=== PATIENT | female | born 1970 | race Caucasian/White ===

== ENCOUNTER → 2018-05-21 | Outpatient (REF) | payer OTHER | LOC: M LAB REF 09:21 | DX: N39.0 Urinary tract infection, site not specified (principal) ==

== ENCOUNTER → 2019-03-27 | Day surgery (SDC) | payer OTHER ==
[~2019-03-27] VITALS: Ht 154.9 cm; Wt 70.7 kg
[~2019-03-27] MED LIST: DIOV80TA3 PO; MOTR200T44 PO; NS 1,000 ML IV ONE; OLME20TA2 PO; PERC5TAB12 PO; PROPOFOL 200 MG/20 ML VIAL As Ordered ONE
--- NOTE | 2019-03-27 08:10 | ROOR ---
Patient Name: Maria Esther Mock Procedure Date: 03/27/2019 7:30 AM Date of : 1970 Age: 48 Room: [facility] Gender: Female Note Status: Finalized Procedure: Total Colonoscopy to Cecum+ Hot Snare Polypectomy+Clips+Carbon Spot Marking Indications: Positive fecal immunochemical test Providers: Alonzo Kovacs MD Referring MD: Natacha TARIQ MD Requesting Provider: Medicines: Monitored Anesthesia Care Complications: No immediate complications. Procedure: Pre-Anesthesia Assessment: - The heart rate, respiratory rate, oxygen saturations, blood pressure, adequacy of pulmonary ventilation, and response to care were monitored throughout the procedure. The Colonoscope was introduced through the anus and advanced to the cecum, identified by appendiceal orifice and ileocecal valve. The colonoscopy was performed without difficulty. The patient tolerated the procedure well. The quality of the bowel preparation was excellent. Findings: The perianal and digital rectal examinations were normal. Non-bleeding internal hemorrhoids were found during retroflexion. The hemorrhoids were small and Grade I (internal hemorrhoids that do not prolapse). Multiple small and large-mouthed diverticula were found in the recto-sigmoid colon, sigmoid colon and descending colon. A large polyp was found at 40 cm proximal to the anus. The polyp was sessile. The polyp was removed with a hot snare. Resection and retrieval were complete. Area was successfully injected with Spot (carbon black) for tattooing. To prevent bleeding after the polypectomy, two hemostatic clips were successfully placed (MR conditional). There was no bleeding at the end of the procedure. A diminutive polyp was found in the splenic flexure. The polyp was sessile. The polyp was removed with a jumbo cold forceps. Resection and retrieval were complete. The exam was otherwise without abnormality on direct and retroflexion views. The terminal ileum appeared normal. Impression: - Non-bleeding internal hemorrhoids. - Diverticulosis in the recto-sigmoid colon, in the sigmoid colon and in the descending colon. - One large polyp at 40 cm proximal to the anus, removed with a hot snare. Resected and retrieved. Injected. Clips (MR conditional) were placed. - One diminutive polyp at the splenic flexure, removed with a jumbo cold forceps. Resected and retrieved. - The examination was otherwise normal on direct and retroflexion views. - The examined portion of the ileum was normal. - The exam was otherwise normal to the cecum. Recommendation: - Patient has a contact number available for emergencies. The signs and symptoms of potential delayed complications were discussed with the patient. Return to normal activities tomorrow. Written discharge instructions were provided to the patient. - High fiber diet. - Discharge patient to home. - Continue present medications. - Await pathology results. - Telephone GI clinic for pathology results in 1 week. - Repeat colonoscopy for surveillance based on pathology results. - Return to referring physician. - Check Portal Online for Path Results.([email or web address]) - The findings and recommendations were discussed with the patient's family. Alonzo Kovacs MD Alonzo Kovacs MD 03/27/2019 8:10:00 AM Electronically signed by Alonzo Kovacs MD Number of Addenda: 0 Note Initiated On: 03/27/2019 7:30 AM Estimated Blood Loss: Estimated blood loss: none.
[2019-03-27 08:25] VITALS: BP 105/69
== END | disposition home or self-care (01) ==
LOC: M OPP 08:10
PROVIDERS: ATTEND Internal Medicine Gastroenterology
DX: D12.6 Benign neoplasm of colon, unspecified (principal); K63.5 Polyp of colon; K64.0 First degree hemorrhoids; K57.30 Diverticulosis of large intestine without perforation or abscess without bleeding; R19.5 Other fecal abnormalities

== ENCOUNTER → 2021-06-23 | Outpatient (REF) | payer OTHER ==
[~2021-06-23] MED LIST changes: -NS 1,000 ML IV ONE; -PROPOFOL 200 MG/20 ML VIAL As Ordered ONE
[2021-06-25 16:08] LABS: ANTINUCLEAR ANTIBODIES DIRECT Negative (Negative); Lyme Disease IgG/IgM Antibodie <0.91 ISR (0.00-0.90); Lyme Disease IgM Ab Quantitati <0.80 index (0.00-0.79)
== END ==
LOC: M LAB REF 16:21
PROVIDERS: ATTEND Registered Nurse
DX: M13.0 Polyarthritis, unspecified (principal)

== ENCOUNTER → 2021-07-02 | Outpatient (CLI) | payer OTHER ==
--- NOTE | 2021-07-02 15:17 | REPMRS ---
Patient History The patient states she has not had a clinical breast exam in over a year. Family history of unknown cancer in maternal grandmother. Took hormonal contraceptives for 14 years. No breast complaints today Patient signed the MRS sheet 1st covid vaccine 01/26/21-right arm-Moderna 2nd covid vaccine 02/23/21-right arm Priors done @ [facility] PACS Patient Identification Verified Digital Woman Screen Mammo: July 02, 2021 - Exam #: [id number] Bilateral CC and MLO view(s) were taken. Technologist: Nica Morris, Technologist Prior study comparison: May 07, 2013, bilateral bilat screen digital mammo, performed at [facility] ([facility]). February 09, 2011, bilateral screening mammogram, performed at [facility] ([facility]). FINDINGS: There are scattered fibroglandular densities. Screening. Digital screening (2D) mammography was performed bilaterally in the CC and MLO projections. Additionally, breast tomosynthesis (3D mammography) was performed bilaterally in the CC and MLO projections. Todays exam was compared to the prior exam/exams. By history, the patient has no complaints of a palpable breast abnormality or other significant breast complaints. The breasts are unchanged in size and shape. There are no joanie-soft tissue densities or spiculated masses. There is no internal architectural distortion. There are no suspicious joanie-calcific clusters. Skin thickening or nipple retraction is not present. IMPRESSION: BI-RADS Category 2- Benign Findings. There is no evidence of malignant alteration of the breasts. Followup examination recommended in one year. The Volpara volumetric breast density category is B, there are scattered areas of fibroglandular densities. This mammogram was read with the assistance of [facility] [employer],an FDA approved computer aided detection system for mammography. The lifetime Tyrer-Cuzick score is 9.3 % Negative x-ray reports should not delay surgical consultation if a dominant or clinically suspicious mass is present. Not all breast cancers can be identified by mammography. Therefore, we recommend that you continue to perform regular breast self-examination and physical examination and then promptly contact your physician of any concerns or changes. Adenosis and dense breasts may obscure an underlying neoplasm. Assessment: BI-RADS/ACR category 2 mammogram. Benign Findings. Recommendation Routine screening mammogram of both breasts in 1 year. Electronically Signed By: Micah Bright DO 07/02/21 [id number]
== END ==
LOC: M WHC 14:22
PROVIDERS: ATTEND Internal Medicine
DX: Z12.31 Encounter for screening mammogram for malignant neoplasm of breast (principal); Z92.0 Personal history of contraception

== ENCOUNTER → 2021-08-16 | Outpatient (CLI) | payer OTHER ==
--- NOTE | 2021-08-16 12:15 | REP ---
INDICATION: PAIN COMPARISON: None. TECHNIQUE: AP, lateral, bilateral oblique, and coned-down views of the lumbar spine. FINDINGS: Alignment and lordosis maintained. Vertebral bodies are intact. No acute fracture/compression injury or subluxation. No obvious spondylolysis or spondylolisthesis. Mild/moderate multilevel degenerative changes include endplate sclerosis, minimal marginal spurring, and disc space narrowing. Findings most pronounced at L5-S1 and L2-3. IMPRESSION: Mild/moderate multilevel degenerative changes. <Electronically signed by Juan M Boyd > 08/16/21 [id number]
== END ==
LOC: M WUC 11:57
PROVIDERS: ATTEND Internal Medicine
DX: M79.606 Pain in leg, unspecified (principal)

== ENCOUNTER → 2022-07-10 | Outpatient (CLI) | payer OTHER | LOC: M LABSMTC 10:09 | PROVIDERS: ATTEND Anesthesiology | DX: Z01.818 Encounter for other preprocedural examination (principal); Z11.52 Encounter for screening for COVID-19 ==

== ENCOUNTER 2022-07-13 11:43 | Day surgery (SDC) | payer OTHER ==
[~2022-07-13] VITALS: Ht 154.9 cm; Wt 72.5 kg
[~2022-07-13 11:43] MED LIST changes: +NS 1,000 ML IV ONE
[2022-07-13] MEDS ORDERED: propofoL 200 MG/20 ML VIAL As Ordered ONE (12:53)
[2022-07-13] MEDS ORDERED: LIDOCAINE 2% 100MG/5ML SDV (FOR ANES.) As Ordered ONE (12:53)
[2022-07-13 14:30] VITALS: BP 129/86
== END 2022-07-13 14:45 | disposition home or self-care (01) ==
LOC: M OPP 11:43
PROVIDERS: ATTEND Internal Medicine Gastroenterology
DX: Z12.11 Encounter for screening for malignant neoplasm of colon (principal); Z86.010 Personal history of colon polyps; K57.30 Diverticulosis of large intestine without perforation or abscess without bleeding; K64.0 First degree hemorrhoids; I10 Essential (primary) hypertension; D64.9 Anemia, unspecified; Z79.1 Long term (current) use of non-steroidal anti-inflammatories (NSAID); Z79.899 Other long term (current) drug therapy; Z88.2 Allergy status to sulfonamides; Z88.8 Allergy status to other drugs, medicaments and biological substances; Z91.013 Allergy to seafood; Z91.018 Allergy to other foods; Z86.16 Personal history of COVID-19

== ENCOUNTER → 2022-08-02 | Outpatient (CLI) | payer OTHER ==
[~2022-08-02] MED LIST changes: -NS 1,000 ML IV ONE
== END ==
LOC: M WHC 13:53
PROVIDERS: ATTEND Internal Medicine
DX: Z12.31 Encounter for screening mammogram for malignant neoplasm of breast (principal)

== ENCOUNTER → 2024-03-11 | Outpatient (CLI) | payer OTHER ==
[~2024-03-11] MED LIST changes: -OLME20TA2 PO; +OLME20TA50 PO
== END ==
LOC: M WHC 09:21
PROVIDERS: ATTEND Internal Medicine
DX: Z12.31 Encounter for screening mammogram for malignant neoplasm of breast (principal); R92.8 Other abnormal and inconclusive findings on diagnostic imaging of breast

== ENCOUNTER → 2024-04-09 | Outpatient (CLI) | payer OTHER | LOC: M WHC 10:15 | PROVIDERS: ATTEND Internal Medicine | DX: R92.8 Other abnormal and inconclusive findings on diagnostic imaging of breast (principal) | CPT/HCPCS: 77065; G0279 ==

== ENCOUNTER → 2025-06-26 | Outpatient (CLI) | payer OTHER | LOC: M WUC 09:16 | PROVIDERS: ATTEND Internal Medicine | DX: M79.662 Pain in left lower leg (principal); M16.12 Unilateral primary osteoarthritis, left hip; M47.816 Spondylosis without myelopathy or radiculopathy, lumbar region; M47.817 Spondylosis without myelopathy or radiculopathy, lumbosacral region ==